=== PATIENT | female | born 1980 | race Caucasian/White ===

== ENCOUNTER 2019-12-06 09:57 | Day surgery (SDC) | payer OTHER ==
[2019-12-04 16:00] LABS: BASOPHILS 0.4 % (0-2); EOSINOPHILS 1.2 % (0-7); HEMATOCRIT 38.5 % (36.0-48.0); HEMOGLOBIN 13.1 g/dL (12-16); IMMATURE GRANULOCYTES 0.2 % (0-5); LYMPHOCYTES 36.7 % (15-50); MCH 29.5 pg (26.0-34.0); MCV 86.7 fL (80.0-100.0); MEAN PLATELET VOLUME 9.6 fL (7.4-10.4); NEUTROPHILS 51.5 % (40-80); PLATELET COUNT 231 10x3/uL (130-400); RBC 4.44 10x6/uL (4.00-5.40); RDW 11.5 % (11.5-14.5); WBC 5.1 10x3/uL (4.8-10.8)
[2019-12-04 16:12] LABS: UDS - AMPHET NEGATIVE QUAL (NEGATIVE); UDS - BARB NEGATIVE QUAL (NEGATIVE); UDS - BENZO NEGATIVE QUAL (NEGATIVE); UDS - COCAINE NEGATIVE QUAL (NEGATIVE); UDS - OPIATE NEGATIVE QUAL (NEGATIVE); UDS - PCP NEGATIVE QUAL (NEGATIVE); UDS - THC NEGATIVE QUAL (NEGATIVE)
[~2019-12-06] VITALS: Ht 152.4 cm; Wt 79.4 kg
--- NOTE | ~2019-12-06 | OP ---
PATIENT NAME: GARY LOVE MEDICAL RECORD: [id number] :84 LOCATION:[facility] ADMISSION DATE: SURGEON: NATANAEL ROGER MD DATE OF OPERATION: 12/06/2019 PREOPERATIVE DIAGNOSIS: Undesired fertility. POSTOPERATIVE DIAGNOSIS: Undesired fertility. PROCEDURE: Bilateral salpingectomy. SURGEON: Natanael Roger MD ANESTHESIOLOGIST: Dr. Barahona ANESTHETIC: General. FINDINGS: Unremarkable uterus, tubes, and ovaries bilaterally. SPECIMEN DISPOSITION: Pathology. ESTIMATED BLOOD LOSS: Minimal. FLUID: 500 cc of lactated Ringer's. URINE OUTPUT: Quantity sufficient void prior to this procedure. COMPLICATIONS: None. DRAINS: None. INDICATIONS: The patient is a 39-year-old multiparous female with undesired fertility. The risks and benefits of this procedure have been discussed, and due to the patient's desire to limit lifetime ovarian cancer risk, the patient wishes to have a salpingectomy. DESCRIPTION OF PROCEDURE: After informed consent was assured, the patient was taken to the operating room, anesthetic was obtained. The patient prepped and draped in usual sterile fashion. An incision was made at the umbilicus to accommodate a 5-mm trocar, which was inserted without difficulty and pneumoperitoneum developed. Accessory ports are now placed in the midline and right lower quadrant. The midline port was an 8 mm port. Through the right port, a grasper was inserted. The right tube was elevated and using a Thunderbeat coagulation cutter, the tissues of the mesosalpinx were compressed, coagulated, and . This dissection was carried out underneath the tube across the cornual region. The right tube was now removed from the central port. Again, using a grasper from the central port. The left tube is now elevated and started at the cornual region and working laterally. The Thunderbeat coagulation cutter was used to compress, coagulate, and separate the tube from its attachments to the adnexa. The distal left tube was removed. Inspection revealed some bleeding on the right side and this is controlled with the Thunderbeat. Once this tissue was desiccated and adequate hemostasis has been achieved, pelvis was irrigated, irrigant removed and the pneumoperitoneum released. Primary port was removed after removal of the accessory ports and release of the pneumoperitoneum. All sites were closed with a subcuticular OPERATIVE REPORT [id number] GARY LOVE. Sponge, lap, and needle counts correct times 2. The patient was awake and went to the recovery room in stable condition. TRANSINT:[id number] Voice Confirmation ID: [id number] DOCUMENT ID: [id number] NATANAEL ROGER MD CC: [id number] DICTATION DATE: 12/11/191453 ANGLE FURNACEMAN: 12/11/192119 [facility] 12/06/19 [place] [id number] [place] [id number]
[~2019-12-06 09:57] MED LIST: CETIRIZINE HCL5 M1 PO; NIKKI PO
[2019-12-06 11:10] VITALS: Ht 152.4 cm; Wt 79.4 kg
[2019-12-06 11:25] LABS: HCG URINE NEGATIVE (NEGATIVE)
--- NOTE | 2019-12-06 16:10 | NUR ---
1445 AMBULATES TO BR AND VOIDS WITHOUT DIFFICULTY. IV D/C'D WITH CANNULA INTACT, PRESSURE HELD, AND DRSG APPLIED. DISCHARGE ORDERS GIVEN AND PT VEFBALIZED AN UNDERSTANDING.
== END 2019-12-06 14:45 | disposition home or self-care (01) ==
LOC: D.OPS 09:57 → D.PAN 12:00 → D.OPS 14:45
PROVIDERS: ATTEND Obstetrics & Gynecology
DX: Z31.84 Encounter for fertility preservation procedure (principal); Z87.42 Personal history of other diseases of the female genital tract

== ENCOUNTER 2020-05-19 08:08 | Emergency (ER) | payer SELFPAY ==
[~2020-05-19] VITALS: Ht 152.4 cm; Wt 81.8 kg
[2020-05-19 08:11] VITALS: BP 143/96; Ht 152.4 cm; Wt 81.8 kg
[2020-05-19] MEDS ORDERED: CLEOCIN HCL300 MG PO (08:38)
[2020-05-19] MEDS ORDERED: HYDROCODON-ACE1 EAC7 PO (08:38)
== END 2020-05-19 08:45 | disposition home or self-care (01) ==
LOC: D.ER 08:08
DX: K02.9 Dental caries, unspecified (principal); K04.7 Periapical abscess without sinus; S02.5XXA Fracture of tooth (traumatic), initial encounter for closed fracture; K21.9 Gastro-esophageal reflux disease without esophagitis